=== PATIENT | male | born 1960 | race Caucasian/White ===

== ENCOUNTER → 2018-09-17 14:02 | Outpatient (CLI) | payer OTHER ==
[2015-12-18 13:53] VITALS: BMI 22.3
[~2018-09-17 14:02] MED LIST: COLAZAL750 MG PO; ELIQUIS2.5 MG PO; HYDROCODONE-APA1 TAB PO; IMURAN50 MG PO; KEFLEX500 MG PO; METOPROLOL TART50 MG PO; PERCOCET 10/3251 TA1 PO; PROTONIX40 MG PO; VENTOLIN HFA18 GM INH
--- NOTE | 2018-09-23 14:03 | EC ---
PATIENT:ANGELLA SALAZAR DATE OF SERVICE: 09/17/18 SEX: M MEDICAL RECORD: [id number] DATE OF : 60 LOCATION:[facility] AGE OF PATIENT: 58 ADMISSION DATE: 09/17/18 REFERRING PHYSICIAN: INTERPRETING PHYSICIAN: KARLENE GUARDADO MD ECHOCARDIOGRAM REPORT ECHO CHARGES 4 ECHO COMPLETE Date: 09/17/18 CLINICAL DIAGNOSIS: HOCM/HTN ECHOCARDIOGRAPHIC MEASUREMENTS (adult normal given) AC root (d.<3.7cm) 3.4 cm LV Septum d (<1.2 cm> 2.1 cm Valve Excursion 1.0 cm LV Septum (systole) 2.2 cm Left Atria (s.<4.0cm> 4.4 cm LVPW d(<1.2cm) 1.8 cm RV (d.<2.3cm) 2.6 cm LVPW (sytole) 2.2 cm LV diastole(<5.6CM) 4.0 cm MV E-F(>70mm/sec) cm LV systole 2.8 cm LVOT Diameter 2.0 cm MV exc.(>10mm) cm Est.ejection fraction (50-75%) % DOPPLER: LVIT cm/sec A 85.0 cm/sec E 73.0 cm/sec LA cm/sec RVSP 23.0 mmHg LVOT 786.0cm/sec AOP1/2T m/s Asc. Ao 267.0cm/sec RVOT 101 cm/sec RA cm/sec PA 96.0 cm/sec AV Gradient Peak 29.0 mmHg AV Mean 11.0 mmHg AV Area 10.3 cm MV Gradient Peak 4.4 mmHg MV Mean 1.6 mmHg MV Area cm COMMENTS: OP - HC Vein Pumper: Anuel UMANAOE Adjuster Piano Action: 3 Dr. Smith TAPE# PACS Pericardial Effusion N DATE OF SERVICE: 09/17/2018 Adequate 2-D echo, color-flow and spectral Doppler, and M-mode. LVH is present with asymptomatic septal hypertrophy and septal wall 2.1 cm. There is an outflow tract gradient at 7.9 meters per second. Aortic valve is tricuspid. No evidence of stenosis by Doppler interrogation. Left atrium is dilated at 4.4 cm. Mitral valve shows no prolapse. Moderate MR. Right-sided chambers are grossly normal. Moderate TR. ECHOCARDIOGRAM REPORT [id number] ANGELLA SALAZAR TRANSINT:[id number] Voice Confirmation ID: [id number] DOCUMENT ID: [id number] KARLENE GUARDADO MD at 1403 CC: [id number] DICTATION DATE: 09/21/18 1339 CLINICIAN ONCOLOGY: 09/21/18 1354 DEP CLI 09/17/18 [place] [id number] [place] [id number]
== END | disposition home or self-care (01) ==
LOC: D.HCCARDIO 14:02
PROVIDERS: ATTEND Internal Medicine Interventional Cardiology
DX: I42.9 Cardiomyopathy, unspecified (principal)

== ENCOUNTER → 2019-08-03 15:51 | Outpatient (CLI) | payer BC ==
[2015-12-18 13:53] VITALS: BMI 22.3
[2019-08-03 16:06] LABS: BASOPHILS 0.5 % (0-2); EOSINOPHILS 0.6 % (0-7); HEMATOCRIT 40.6 % (42.0-54.0); HEMOGLOBIN 13.4 g/dL (13.5-17.5); IMMATURE GRANULOCYTES 0.2 % (0-5); LYMPHOCYTES 22.7 % (15-50); MCH 30.6 pg (26.0-34.0); MCV 92.7 fL (80.0-100.0); MEAN PLATELET VOLUME 9.4 fL (7.4-10.4); MONOCYTES 9.4 % (2-11); NEUTROPHILS 66.6 % (40-80); RBC 4.38 10x6/uL (4.20-6.10); RDW 14.7 % (11.5-14.5); WBC 6.3 10x3/uL (4.8-10.8)
[2019-08-03 16:12] LABS: PLATELET COUNT 175 10x3/uL (130-400)
[2019-08-03 16:31] LABS: ALBUMIN 3.7 g/dL (3.4-5.0); ALKALINE PHOSPHATASE 46 U/L (30-120); ALT (SGPT) 6 U/L (10-68); BILIRUBIN - TOTAL 0.22 mg/dL (0.2-1.3); CARBON DIOXIDE 16.2 mmol/L (21.0-32.0); GLUCOSE 82 mg/dL (74-106); UREA NITROGEN 13 mg/dL (7-18)
[2019-08-03 16:47] LABS: CALC OSMOLALITY 277 mosm/kg (275-300); CHLORIDE - SERUM 103 mmol/L (98-107); POTASSIUM - SERUM 3.9 mmol/L (3.5-5.1); PROTEIN - SERUM 7.8 g/dL (6.4-8.2); SODIUM 140 mmol/L (136-145); eGFR NON AFRICAN AMERICAN 81 mL/min (90-120)
[2019-08-03 16:59] LABS: CALCIUM 8.5 mg/dL (8.5-10.1)
[2019-08-03 17:08] LABS: ERYTHROCYTE SEDIMENTATION RATE 10 mm/hr (0-20)
== END | disposition home or self-care (01) ==
LOC: D.LAB 15:51
PROVIDERS: ATTEND Internal Medicine Gastroenterology
DX: K50.90 Crohn's disease, unspecified, without complications (principal)

== ENCOUNTER 2019-08-16 06:28 | Day surgery (SDC) | payer BC ==
[~2019-08-16] VITALS: Ht 162.6 cm; Wt 61.4 kg
[2019-08-16 08:35] VITALS: BP 180/89; Ht 162.6 cm; Wt 61.4 kg
[2019-08-16 09:09] LABS: BASOPHILS 0.4 % (0-2); EOSINOPHILS 1.1 % (0-7); HEMATOCRIT 39.6 % (42.0-54.0); HEMOGLOBIN 12.6 g/dL (13.5-17.5); LYMPHOCYTES 28.2 % (15-50); MCH 29.8 pg (26.0-34.0); MCHC 31.8 g/dL (31.0-37.0); MCV 93.6 fL (80.0-100.0); MONOCYTES 10.1 % (2-11); NEUTROPHILS 60.2 % (40-80); PLATELET COUNT 181 10x3/uL (130-400); RBC 4.23 10x6/uL (4.20-6.10); WBC 4.7 10x3/uL (4.8-10.8)
--- NOTE | 2019-08-16 14:02 | NUR ---
PATIENT EXHIBITS SOME AGITATION AT HAVING TO WAIT ON DISCHARGE UNTIL BLOOD PRESSURE IS DECREASED. PATIENT HAS NO SYMPTOMS OF HIGH BLOOD PRESSURE AND STATES HE NEEDS TO GET HOME. EXPLAINED TO PATIENT THAT IT IS NOT SAFE FOR HIM TO BE DISCHARGED WITH THIS LEVEL OF BLOOD PRESSURE. HYDRALAZINE 5 MG IV GIVEN IN RIGHT HAND PIV
--- NOTE | 2019-08-16 14:49 | NUR ---
PATIENT CONTINUES TO BE IMPATIENT TO BE DISCHARGED, THIS NURSE EXPLAINS TO PATIENT THAT BLOOD PRESSURE IS COMING DOWN AND PATIENT SHOULD BE READY FOR DISCHARGE SOON. ATTEMPTED TO REASSURE PATIENT THAT WHAT IS BEING DONE IS BEST FOR HIM. OFFERED FULL LIQUIDS OR CLEAR LIQUIDS WHILE HE WAITS, PATIENT DECLINES ANY FURTHER PO INTAKE, STATES "IT JUST GOES RIGHT THROUGH ME AND I HAVE TO RUN TO THE BATHROOM FOR A BOWEL MOVEMENT." DENIES NAUSEA
--- NOTE | 2019-08-17 07:12 | OP ---
PATIENT NAME: ANGELLA SALAZAR MEDICAL RECORD: [id number] :60 [facility] DATE: SURGEON: JAVIER KONG DO DATE OF OPERATION: 08/16/2019 PROCEDURE: Colonoscopy. INDICATIONS FOR PROCEDURE: History of Crohn disease, diarrhea, generalized abdominal pain, and hematochezia. SCOPE: Index video pediatric colonoscope. MEDICATIONS: Propofol 300 mg IV per anesthesia. ESTIMATED BLOOD LOSS: Minimal. COMPLICATIONS: None. FINDINGS: Informed consent was given. The patient was made comfortable with the above medication. After reaching an adequate level of sedation by slow IV push, the patient was placed on his left side. A digital rectal examination revealed some external hemorrhoids. The endoscope was then advanced under direct visualization through the extent of the colon which is approximately 20 cm from the anal verge. At that point, an ileocolonic anastomosis is encountered. The endoscope was able to traverse into the small intestine which appeared normal in its entirety. No biopsies were taken from this site. The endoscope was withdrawn back into the colon, which revealed severe colitis with findings of multiple ulcerations of varying size and depth as well as significant granularity, erythema, friability, and complete loss of vascular pattern. Appearances were consistent with inflammatory bowel disease. Of the two, the patient's colonic involvement which started in the rectum and went to the proximal extent without involvement of the small intestine suggest ulcerative colitis. The patient does, however, carry a history of Crohn's disease. Multiple biopsies were taken from the segment of colitis to submit for histopathology. Retroflexion was not performed. The endoscope was withdrawn from the patient. The patient tolerated the procedure well and there were no immediate complications. IMPRESSION: 1. Severe colitis involving the entire segment of colon, which is approximately 20 cm from the anal verge. Appearances are consistent with inflammatory bowel disease as described above. 2. Normal small intestine. PLAN AND RECOMMENDATIONS: 1. Discharge home when recovery parameters are met. 2. Follow up biopsy specimen results. 3. High fiber diet. 4. Continue current medications. 5. We will prescribe dicyclomine 20 mg tablets to be taken up to 4 times daily at this time. 6. We will attempt to get the patient approved for Humira or a similar biologic therapy to see if this can help with his symptoms. Even if the colitis is healed with medications, there will likely still be a degree of diarrhea due to the patient's very short colon. Until the inflammatory bowel is completely OPERATIVE REPORT [id number] ANGELLA SALAZAR managed, we will not know how much this can be improved from a symptom standpoint. 7. Repeat colonoscopy should take place within 6 months of initiating biologic therapy. TRANSINT:[id number] Voice Confirmation ID: [id number] DOCUMENT ID: [id number] JAVIER KONG DO at 0712 CC: [id number] DICTATION DATE: 08/16/19 1211 NEWS LIBRARY DIRECTOR: 08/16/19 2347 [facility] 08/16/19 [facility] [address] [place] [address]
== END 2019-08-16 15:20 | disposition home or self-care (01) ==
LOC: D.OPS 06:28
PROVIDERS: Anesthesiology; ATTEND Internal Medicine Gastroenterology
DX: R19.7 Diarrhea, unspecified (principal); R10.9 Unspecified abdominal pain; K50.90 Crohn's disease, unspecified, without complications; K92.1 Melena; J44.9 Chronic obstructive pulmonary disease, unspecified; Z72.0 Tobacco use

== ENCOUNTER → 2019-11-08 15:59 | Outpatient (CLI) | payer BC ==
[2019-08-16 08:35] VITALS: BMI 23.2
[2019-11-08 17:46] LABS: ALBUMIN 4.1 g/dL (3.4-5.0); ANION GAP 12.5 mmol/L (8-16); BILIRUBIN - DIRECT 0.11 mg/dL (0.00-0.30); BILIRUBIN - TOTAL 0.45 mg/dL (0.2-1.3); CALCIUM 9.4 mg/dL (8.5-10.1); CARBON DIOXIDE 28.8 mmol/L (21.0-32.0); CREATININE - SERUM 1.1 mg/dL (0.6-1.3); POTASSIUM - SERUM 4.3 mmol/L (3.5-5.1); PROTEIN - SERUM 7.9 g/dL (6.4-8.2)
[2019-11-08 18:21] LABS: ERYTHROCYTE SEDIMENTATION RATE 21 mm/hr (0-20)
== END | disposition home or self-care (01) ==
LOC: D.LAB 15:59
PROVIDERS: ATTEND Internal Medicine Gastroenterology
DX: K50.10 Crohn's disease of large intestine without complications (principal)

== ENCOUNTER → 2020-08-11 12:25 | Outpatient (CLI) | payer BC ==
[2019-08-16 08:35] VITALS: BMI 23.2
[2020-08-11 13:23] LABS: ALBUMIN 4.6 g/dL (3.4-5.0); ANION GAP 17.7 mmol/L (8-16); BILIRUBIN - DIRECT 0.27 mg/dL (0.00-0.30); BILIRUBIN - INDIRECT 0.57 mg/dL (0.00-1.00); BILIRUBIN - TOTAL 0.84 mg/dL (0.2-1.3); CALCIUM 8.7 mg/dL (8.5-10.1); CARBON DIOXIDE 21.1 mmol/L (21.0-32.0); CREATININE - SERUM 4.7 mg/dL (0.6-1.3); POTASSIUM - SERUM 5.8 mmol/L (3.5-5.1); PROTEIN - SERUM 8.6 g/dL (6.4-8.2)
[2020-08-11 14:09] LABS: ERYTHROCYTE SEDIMENTATION RATE 25 mm/hr (0-20)
== END | disposition home or self-care (01) ==
LOC: D.LAB 12:25
PROVIDERS: ATTEND Internal Medicine Gastroenterology
DX: K50.10 Crohn's disease of large intestine without complications (principal); Z79.899 Other long term (current) drug therapy

== ENCOUNTER → 2020-08-28 09:07 | Outpatient (CLI) | payer BC ==
[2019-08-16 08:35] VITALS: BMI 23.2
[2020-08-28 09:38] LABS: BASOPHILS 1.1 % (0-2); EOSINOPHILS 0.6 % (0-7); HEMOGLOBIN 11.9 g/dL (13.5-17.5); LYMPHOCYTES 19.8 % (15-50); MCH 29.8 pg (26.0-34.0); MCV 90.4 fL (80.0-100.0); MEAN PLATELET VOLUME 7.9 fL (7.4-10.4); MONOCYTES 10.6 % (2-11); NEUTROPHILS 67.9 % (40-80); PLATELET COUNT 204 10x3/uL (130-400); RBC 3.98 10x6/uL (4.20-6.10); RDW 14.9 % (11.5-14.5); WBC 8.5 10x3/uL (4.8-10.8)
[2020-08-28 09:49] LABS: ANION GAP 13.2 mmol/L (8-16); BILIRUBIN - DIRECT 0.17 mg/dL (0.00-0.30); BILIRUBIN - INDIRECT 0.27 mg/dL (0.00-1.00); BILIRUBIN - TOTAL 0.44 mg/dL (0.2-1.3); CALCIUM 9.1 mg/dL (8.5-10.1); CARBON DIOXIDE 24.5 mmol/L (21.0-32.0); CREATININE - SERUM 1.1 mg/dL (0.6-1.3); POTASSIUM - SERUM 4.7 mmol/L (3.5-5.1); PROTEIN - SERUM 7.7 g/dL (6.4-8.2)
[2020-08-28 12:15] LABS: ERYTHROCYTE SEDIMENTATION RATE 23 mm/hr (0-20)
== END | disposition home or self-care (01) ==
LOC: D.LAB 09:07
PROVIDERS: ATTEND Internal Medicine Gastroenterology
DX: K50.10 Crohn's disease of large intestine without complications (principal); Z79.899 Other long term (current) drug therapy